=== PATIENT | male | born 1955 | race Caucasian/White ===

== ENCOUNTER → 2016-05-08 | Outpatient (CLI) | payer BC, MEDICARE ==
[~2016-05-08] MED LIST: ATOR10TA64 PO; BUPR150T3 PO; DULO60CA46 PO; FINA5TAB42 PO; FOLI-75 PO; GABA-338 PO; INSU300I SQ; LISI-625 PO; METF10002 PO; METO25TA6 PO; OMEG100016; PANT40TA27 PO; RANI150T7 PO
--- NOTE | 2016-05-08 15:39 | DI ---
Indication: ITS.REASON: I25.10 Atherosclerotic heart disease of [place]; G45.9; I65.29 PROCEDURE: US CAROTID DOPP COMPLETE: Comparison: November 03, 2013 TECHNIQUE: Grayscale, color and duplex Doppler imaging was performed of the carotid systems bilaterally. Velocities in cm/sec - validated velocity measurements with angiographic measurements, velocity criteria are extrapolated from diameter data as defined by the Society of Radiologists in Ultrasound Consensus Conference Radiology 2003; 229;340-346. RIGHT: PSV ICA 172 EDV ICA 40 PSV CCA 111 EDV CCA 17 SVR 1.5 PSV ECA 130 ICA Diameter reduction 50-75% LEFT: PSV ICA 234 EDV ICA 79 PSV CCA 95 EDV CCA 21 SVR 2.5 PSV ECA 142 ICA Diameter reduction 70%-80% (>2.5 PSV>200)% The right vertebral artery is patent with cephalic flow. The left vertebral artery is patent with cephalic flow. Overall stable velocity elevation in both carotid arteries involving the proximal to mid aspect bilaterally. Significant common carotid intimal thickening or noncalcified plaque on the right measuring 2.4 mm in thickness. IMPRESSION: Grossly unchanged bilateral internal carotid stenoses. .
== END ==
LOC: IMA 14:19
PROVIDERS: ATTEND Physician Assistant
DX: I25.10 Atherosclerotic heart disease of native coronary artery without angina pectoris (principal); I65.23 Occlusion and stenosis of bilateral carotid arteries

== ENCOUNTER 2017-04-05 17:49 | Inpatient (IN) ==
--- OUTSIDE RECORDS SUMMARY | 2017-04-05 18:00 | External Medical Summary | Clinical Summary ---
:1955 Author Organization [facility] Address [address] [place] [address] Phone Care Team Providers Name Role Phone Vic Dorantes MD Primary Care Provider Keven Gifford MD Unavailable Katie Esteves APRN Unavailable Raiza Araiza MD Unavailable Long Benoit RN Unavailable Unavailable Source Comments Some departments are not documenting in the electronic medical record. If you do not see the information that you expected, contact Release of Information in the Health Information Management department at [phone] for further assistance in locating additional records.[facility] Allergies No Known Allergies Current Medications Prescription Sig. Disp. Refills Start Date End Date Status INSULIN Inject 32 Units Active GLARGINE,HUM.REC.ANLOG into area(s) as (LANTUS SC) directed at bedtime daily. insulin lispro(+) Inject 16 Units Active (HUMALOG) 100 unit/mL SC into area(s) as injection directed daily with breakfast. 13 units with lunch8 units with dinner AMLODIPINE BESYLATE Take 2.5 mg by Active (AMLODIPINE PO) mouth daily. aspirin 325 mg PO tablet Take 325 mg by Active mouth Daily. PV W-O WING/FERROUS Take by mouth. Active FUMARATE/FA (M-VIT PO) losartan (COZAAR) 50 mg Take 50 mg by mouth Active tablet daily. metoprolol (LOPRESSOR) 25 Take 25 mg by mouth Active mg tablet twice daily. DOCOSAHEXANOIC ACID/EPA Take 1,000 mg by Active (FISH OIL PO) mouth. polyethylene glycol 3350 Take 17 g by mouth Active (GLYCOLAX; MIRALAX) 17 daily. gram/dose powder potassium chloride SR Take 10 mEq by Active (K-DUR) 10 mEq tablet mouth twice daily. ranitidine (ZANTAC) 75 mg Take 75 mg by mouth Active tablet daily as needed. rosuvastatin (CRESTOR) 5 Take 10 mg by mouth Active mg tablet daily. cloNIDine (CATAPRESS) 0.1 Take 0.1 mg by Active mg tablet mouth daily. HYDROcodone-acetaminophen Take 1 Tab by mouth Active (VICODIN) 5-500 mg tablet every 4-6 hours as needed. Active Problems Problem Noted Date CAD (coronary artery disease) 03/20/2010 DM (diabetes mellitus) (HCC) 03/20/2010 HLD (hyperlipidemia) 03/20/2010 Neuropathy, diabetic (HCC) 03/20/2010 Ulcer of esophagus 03/20/2010 HTN (hypertension) 03/20/2010 CVA (cerebral infarction) 03/20/2010 Social History Tobacco Use Types Packs/Day Years Used Date Never Smoker Smokeless Tobacco: Never Used Alcohol Use Drinks/Week oz/Week Comments Yes 1 Cans of beer 0.6 rare Sex Assigned at Date Recorded Not on file Last Filed Vital Signs Vital Sign Reading Time Taken Blood Pressure 156/80 10/23/2011 2:30 PM CDT Pulse 57 10/23/2011 2:30 PM CDT Temperature 36.9 C (98.4 F) 10/23/2011 11:39 AM CDT Respiratory Rate - - Oxygen Saturation 98% 10/23/2011 2:30 PM CDT Inhaled Oxygen Concentration - - Weight 90.7 kg (200 lb) 05/11/2011 8:00 AM CDT Height 172.7 cm (5' 8") 05/11/2011 8:00 AM CDT Body Mass Index 30.41 05/11/2011 8:00 AM CDT Plan of Treatment Health Maintenance Due Date Last Done Comments HEPATITIS C SCREENING 1955 PHYSICAL (COMPREHENSIVE) EXAM 1960 PERTUSSIS VACCINE 1964 TETANUS VACCINE 1970 DILATED EYE EXAM 11/08/1971 FOOT EXAM 11/08/1971 HBA1C 11/08/1971 MICROALBUMIN 11/08/1971 PNEUMONIA VACCINE (DM) 11/08/1971 COLORECTAL CANCER SCREENING 11/08/2003 SHINGLES VACCINE 2013 INFLUENZA VACCINE 09/15/2016
[2017-04-05 18:29] VITALS: BMI 32.2
[2017-04-05] MEDS ORDERED: ACETAMINOPHEN 325 MG TABLET PO PRN (18:53)
[2017-04-05] MEDS ORDERED: CEFTRIAXONE 2 GM INJECTION IV SCH (19:00)
[2017-04-05] MEDS ORDERED: AZITHROMYCIN IV 500 MG in NS 250ml 250 ML IV SCH (19:00)
[2017-04-05] MEDS ORDERED: NS FLUSH BAG 500ml IV PRN (20:06)
[2017-04-05] MEDS ORDERED: LABETALOL 100mg/20ml INJECTION IVP PRN (20:39)
[2017-04-05] MEDS ORDERED: ALBUTEROL/IPRATROPIUM 2.5mg-0.5mg/3ml NEB AEROSOL PRN (20:41)
[2017-04-05] MEDS ORDERED: ATORVASTATIN 20 MG TABLET PO SCH (20:45)
[2017-04-05] MEDS ORDERED: GABAPENTIN 300 MG CAPSULE PO SCH (21:00)
[2017-04-05] MEDS ORDERED: INSULIN GLARGINE 100unit/ml INJECTION SQ SCH (21:00)
[2017-04-05] MEDS ORDERED: INSULIN GLARGINE 100unit/ml INJECTION SQ ONE (21:10)
--- NOTE | 2017-04-05 21:22 | History & Physical Report ---
History of Present Illness Date: 04/05/17 Chief complaint: dyspnea, cough HPI: Mr. Garvey is a 61-year-old gentleman referred from Suzan Bradshaw APRN's office after he presented with 2 day history of dyspnea, wheezing, and cough. Symptoms developed after he had spent time with his son and grandson earlier in the day Wednesday. Grandson has a "cold". After returning home the patient began having difficulty breathing and wheezing. He developed chills and a constant nonproductive cough. He describes increasing exertional dyspnea and orthopnea, pain with coughing, but no hemoptysis. He's had no fever that he is aware of although low-grade temperature of 99.4 was recorded in the office earlier today. Patient describes increased thirst and some nausea and vomiting. He's had no edema or chest pain. Patient describes increasing fatigue with dizziness , nasal congestion, sore throat, and generalized myalgias. In the office oxygen saturation was 88% on room air and chest x-ray demonstrated right lower lobe infiltrate. He was subsequently referred for hospitalization and management of pneumonia. Influenza swab was negative. Review of Systems All systems PM: 10-point ROS was reviewed, no additional remarkable complaints except (minor pain at the left ankle from recent fibular fracture, mild left lower extremity weakness due to stroke in the remote past. Patient describes decreased appetite recently but thinks he's been maintaining oral intake of liquids. 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 CABG x 4, . Right carotid stent 03/28 ( [facility]). Tonsillectomy as a child. Bilateral cataracts. Family History: Family History (Last Updated 04/05/17 @ 20:38 by Breanne Estrada MD) Father Diabetes HTN (hypertension) Colon polyps CHF (congestive heart failure) Paternal Grandfather Colon cancer Mother HTN (hypertension) Family History Updates: . - Social History Smoking status: Never smoker Substance use type: does not use Alcohol intake frequency: holidays/special occasions only Household members: spouse Social history: PCP-Suzan Bradshaw APRN CODE STATUS-DO NOT RESUSCITATE DPOA-patient's Medications Home Medications Medication Instructions Recorded Confirmed Type Multivitamin/Iron/Folic Acid 1 tab PO DAILY #0 12/31/15 04/05/17 History [Centrum Complete Multivit Tab] Metoprolol Tartrate 25 mg PO BIDWM #0 tab 01/01/16 04/05/17 History Plavix (clopidogrel) 75 mg tablet 75 mg PO DAILY tab 08/26/16 04/05/17 History aspirin 81 mg chewable tablet 81 mg PO DAILY tab 08/26/16 04/05/17 History cinnamon bark 500 mg capsule 1,000 mg PO DAILY 08/26/16 04/05/17 History omega-3 fatty acids 1,000 mg 1,000 mg PO DAILY cap 08/26/16 04/05/17 History capsule Gabapentin 1 cap PO HS 04/05/17 04/05/17 History Insulin Glargine,Hum.rec.anlog 55 unit SQ HS 04/05/17 04/05/17 History [Sander Galeas] Allergies Allergy/AdvReac Type Severity Reaction Status Date / Time rosuvastatin [From Crestor] Allergy Unknown Verified 04/05/17 18:18 Exam Vital Signs: Temperature 99.7 F 04/05/17 18:13 Pulse Rate 82 04/05/17 19:30 Respiratory Rate 24 04/05/17 18:13 Blood Pressure 230/110 H 04/05/17 20:00 Pulse Oximetry 95 04/05/17 18:13 EXAM: General-NAD, fatigued, coughs frequently, obese HEENT-PERRL, EOMI without nystagmus, conjugate gaze, conjunctiva clear, sclera anicteric, facial structures symmetric, oropharynx clear, neck supple and without adenopathy Lungs-respirations nonlabored, no wheezing appreciated at time of my exam, crackle/coarse sounds at the bases bilaterally Cardiac-regular rhythm, S1-S2 Abd-soft, nontender, without palpable mass, bowel sounds present/diminished Ext-trace edema dorsal surface of the feet bilaterally, edema extends to the ankle on the left only Skin-without rash Neuro-cranial nerves 3-12 intact, motor tone/power grossly within normal limits , sensation intact to light touch 4 extremities Psych-cooperative, calm Height/Weight/BMI: Height 1.68 m Weight 90.5 kg Body Mass Index 32.2 Results - Labs CBC & Chem 7: 04/05/17 19:06 Labs: White count 10.6 earlier today, hemoglobin 11.9 with MCV 85.8. Differential was unremarkable in the office other than 5% eosinophils Swab for influenza A/B negative in the office Lactic acid 1.1, procalcitonin 0.37 - Imaging and Cardiology Chest x-ray Status: image reviewed by me (chest x-ray from earlier in the day demonstrates patchy right lower lobe infiltrate, there may be streaky left lower lobe infiltrate which is less well defined by my review.) Assessment and Plan (1) Pneumonia Current visit: Yes Status: Acute (2) Hypoxia Current visit: Yes Status: Acute Assessment and Plan: Impression: Pneumonia with hypoxia Uncontrolled hypertension/hypertensive urgency Diabetes mellitus, long-term insulin Diabetic retinopathy and peripheral neuropathy CAD Hyperlipidemia Left fibular fracture Plan: Patient is admitted with viral sounding prodrome and demonstrated right lower lobe infiltrate, fever, and hypoxia. He'll empirically be treated for community- acquired pneumonia with ceftriaxone and azithromycin. Respiratory therapy has been consulted for assistance with breathing treatments. Lactic acid and procalcitonin were not significantly elevated and blood cultures have not been drawn as a result. Sputum culture will be obtained, full respiratory viral panel obtained, and urine antigens for strep pneumonia and legionella. Overnight oximetry will be screened. Patient reports he's not taken metoprolol for blood pressure control for the past 24 hours or more-dose being given now and IV labetalol when necessary ordered. Monitor blood sugars, continue home diabetic regimen, carbohydrate diet. Last A1c was 12.9 in late December 2016-office records suggest patient is using NovoLog 10 units 3 times a day the patient reports he only takes one shot of insulin daily. Dietary counseling will be provided while hospitalized. Continue cam walker when out of bed. DO NOT RESUSCITATE order written in accordance with patient's wishes. Patient will return to the care of Suzan Bradshaw APRN following completion of hospitalization. DVT Prophylaxis: SCD's, Lovenox GI Prophylaxis: Protonix Resuscitation Status: Do Not Resuscitate - Physician Narrative Narrative: Date: 04/05/17 Time: 2117 Hospital Course Summary Disclaimer: The visit summary below is not to be considered part of the above Progress Note. Hospital Course: 04/05/17-admission Patient is admitted with viral sounding prodrome and demonstrated right lower lobe infiltrate, fever, and hypoxia. He'll empirically be treated for community- acquired pneumonia with ceftriaxone and azithromycin. Respiratory therapy has been consulted for assistance with breathing treatments. Lactic acid and procalcitonin were not significantly elevated and blood cultures have not been drawn as a result. Sputum culture will be obtained, full respiratory viral panel obtained, and urine antigens for strep pneumonia and legionella. Overnight oximetry will be screened. Patient reports he's not taken metoprolol for blood pressure control for the past 24 hours or more-dose being given now and IV labetalol when necessary ordered. Monitor blood sugars, continue home diabetic regimen, carbohydrate diet. Last A1c was 12.9 in late December 2016-office records suggest patient is using NovoLog 10 units 3 times a day the patient reports he only takes one shot of insulin daily. Dietary counseling will be provided while hospitalized. Continue cam walker when out of bed.
[2017-04-05] MEDS: INSULIN ASPART 100unit/ml INJECTION SQ PRN (22:24)
[2017-04-05] MEDS ORDERED: AZITHROMYCIN 500 MG TABLET PO ONE (22:25)
[2017-04-06] MEDS: INSULIN ASPART 100unit/ml INJECTION SQ PRN (06:13)
[2017-04-06] MEDS ORDERED: PANTOPRAZOLE 40 MG TABLET PO SCH (06:30)
[2017-04-06 07:36] VITALS: BP 177/90; TEMP 96.7
[2017-04-06] MEDS ORDERED: CLOPIDOGREL 75 MG TABLET PO SCH (09:00)
[2017-04-06] MEDS ORDERED: ENOXAPARIN 40 MG/0.4 ML INJECTION SQ SCH (09:00)
[2017-04-06] MEDS ORDERED: BuPROPion IR 75 MG TABLET PO SCH (09:00)
[2017-04-06] MEDS ORDERED: FINASTERIDE 5 MG TABLET PO SCH (09:00)
[2017-04-06] MEDS ORDERED: LIRAGLUTIDE INJECTABLE PEN SQ SCH (09:00)
[2017-04-06] MEDS ORDERED: ASPIRIN 81 MG CHEWABLE TABLET PO SCH (09:00)
[2017-04-06] MEDS ORDERED: DULOXETINE 30 MG CAPSULE PO SCH (09:00)
--- NOTE | 2017-04-06 11:12 | XRay Report ---
INDICATION: pneumonia PROCEDURE: CHEST 2-VIEWS UPRIGHT (PA & LAT) Encounter: Initial COMPARISON: April 05, 2017 FINDINGS: Slight improvement in multifocal airspace consolidation of the right lung with residual airspace disease. No new or worsening infiltrates. No pneumothorax. Trace right effusion. Heart size, pulmonary vascularity and mediastinal contours are stable. Prior CABG. Impression: Slight improvement in right-sided pneumonia. .
[2017-04-06 11:37] VITALS: O2SAT 97
[2017-04-06 12:10] VITALS: PULSE 62
[2017-04-06] MEDS ORDERED: INFLUENZA VAC QIV 2017-18 (Fluarix*)(>=3yo) 0.5ml IM ONE (14:33)
[2017-04-06] MEDS: ALBUTEROL/IPRATROPIUM 2.5mg-0.5mg/3ml NEB AEROSOL SCH ×2 (15:39→15:44)
[2017-04-06 15:49] VITALS: RESP 18
--- NOTE | 2017-04-06 16:11 | Discharge Summary ---
Discharge Information Date of admission: 04/05/17 17:49 Anticipated date of discharge: 04/06/17 Attending Physician: Francisca Dean MD Primary care physician: Suzan Bradshaw APRN Consults: 04/05/17 21:41 Dietary Consult [CONS] Routine Comment: Reason For Exam: uncontrolled diabetes Community Acquired pneumonia Acute hypoxic respiratory failure Hypertensive urgency Diabetes mellitus, long-term insulin Diabetic retinopathy and peripheral neuropathy CAD Hyperlipidemia Left fibular fracture - Laboratory Labs: 04/06/17 05:25 04/06/17 05:25 - Microbiology Viral respiratory panel negative - Radiology Radiology: CXR- Right lower lobe pneumonia History of Present Illness HPI: Mr. Garvey is a 61-year-old gentleman referred from Suzan Bradshaw APRN's office after he presented with 2 day history of dyspnea, wheezing, and cough. Symptoms developed after he had spent time with his son and grandson earlier in the day Wednesday. Grandson has a "cold". After returning home the patient began having difficulty breathing and wheezing. He developed chills and a constant nonproductive cough. He describes increasing exertional dyspnea and orthopnea, pain with coughing, but no hemoptysis. He's had no fever that he is aware of although low-grade temperature of 99.4 was recorded in the office earlier today. Patient describes increased thirst and some nausea and vomiting. He's had no edema or chest pain. Patient describes increasing fatigue with dizziness , nasal congestion, sore throat, and generalized myalgias. In the office oxygen saturation was 88% on room air and chest x-ray demonstrated right lower lobe infiltrate. He was subsequently referred for hospitalization and management of pneumonia. Influenza swab was negative. Objective Vital signs: Temperature 96.7 F L 04/06/17 07:34 Pulse Rate 62 04/06/17 12:00 Respiratory Rate 18 04/06/17 15:44 Blood Pressure 177/90 H 04/06/17 07:34 Pulse Oximetry 97 04/06/17 13:58 Rhythm: Normal Sinus Rhythm Height/Weight/BMI: Height 5 ft 6 in Weight 91.2 kg Body Mass Index 32.2 - Constitutional Present: no acute distress, cooperative - Routine HEENT Exam Head: Present: normocephalic, atraumatic Eye: Present: EOMI, conjunctivae pink ENT: Present: mucous membranes moist - Routine Respiratory Exam Present: crackles (R). Absent: respiratory distress Comments: RLL - Routine Cardiovascular Exam Present: RRR, no murmur - Routine Abdominal Exam Present: soft, normoactive bowel sounds. Absent: tenderness - Routine Extremities Exam Present: no edema - Routine Musculoskeletal Exam Musculoskeletal: Present: no clubbing or cyanosis, no tenderness - Routine Skin Exam Present: intact, dry, warm - Routine Neurological Exam Present: alert, oriented X3, CN II-XII intact - Routine Psychiatric Exam Present: normal affect Hospital Course This is a general summary of the patient's hospital course. For more details refer to the complete medical record. Hospital course: Patient is admitted with viral sounding prodrome and CXR showed right lower lobe infiltrate. Patient also had fever and hypoxia. He was empirically treated for community-acquired pneumonia with ceftriaxone and azithromycin. Respiratory therapy was consulted for assistance with breathing treatments. Lactic acid and procalcitonin were not significantly elevated and blood cultures were not drawn as a result. Full respiratory viral panel was negative and urine antigens for strep pneumonia and legionella were pending at the time of discharge. Patient was initially improved at admission after being given breathing treatment but then required oxygen over night due to hypoxia. Patient was able to be titrated to room air. He was changed to PO levaquin. Patient reports he's not taken metoprolol for blood pressure control for the past 24 hours or more prior to admission. IV PRN medications were given with a resultant decrease in blood pressure. Counseled on the importance of medication compliance. Patient instructed to follow up with PCP in one week and to continue home medications as instructed. He was provided with prescription for antibiotics. Discharge Plan - Discharge Disposition Disposition: Discharged Home, Self-Care *Condition: Stable Reason For Visit (Visit label in EMR): pneumonia,hypoxia - Discharge Medications *Discharge Medications: New levoFLOXacin [Levaquin] 750 mg PO ACB #5 tab Continue Multivitamin/Iron/Folic Acid [Centrum Complete Multivit Tab] 1 tab PO DAILY # 0 Gabapentin 1 cap PO HS Metoprolol Tartrate 25 mg PO BIDWM #0 tab Insulin Glargine,Hum.rec.anlog [Sander Galeas] 55 unit SQ HS cinnamon bark 500 mg capsule 1,000 mg PO DAILY omega-3 fatty acids 1,000 mg capsule 1,000 mg PO DAILY cap Cymbalta (duloxetine) 30 mg capsule,delayed release 30 mg PO DAILY #30 cap Lipitor (atorvastatin) 20 mg tablet 20 mg PO .bedtime #90 tab Plavix (clopidogrel) 75 mg tablet 75 mg PO DAILY tab aspirin 81 mg chewable tablet 81 mg PO DAILY tab liraglutide 0.6 mg/0.1 mL (18 mg/3 mL) subcutaneous pen injector 1.2 mg SQ DAILY #3 ml bupropion HCl 75 mg tablet 75 mg PO DAILY #90 tab Proscar (finasteride) 5 mg tablet 5 mg PO DAILY #90 tab - Discharge Packet/Instructions *Diet: Diabetic *Activity: As tolerated *Pain Management/Treatment: Tylenol as needed. Continue Levaquin x 5 days *Wound Care: N/A *Expected Signs/Symptoms: Cough *Notify Physician if: Continued fever, worsening of symptoms, increased shortness of breath, signs of dehydration *During Business Hours Contact: PCP *After Business Hours Contact: call center representative physician or ED *Pending Lab/Results: No Pending Lab - Referrals/Follow Up *Referrals/Follow Up: Suzan Bradshaw, [facility] [Family Provider] - 1 Week - Patient Handouts Patient Handouts: Hypoxia (GEN), Pneumonia (GEN) - Dismissal Complete Discharge Instructions are:: Complete Physician Narrative - Narrative Physician: other Attestation Narrative: Date: 04/06/17 Time: 4541
[2017-04-06] MEDS ORDERED: INFLUENZA VAC. INJ. ADMIN CHARGE INJ ONE (17:49)
[2017-04-06] MEDS ORDERED: CEFTRIAXONE 1 G in NS 50 ML IV SCH (20:00)
[2017-04-06] MEDS ORDERED: ATORVASTATIN 20 MG TABLET PO SCH (21:00)
[2017-04-07] MEDS ORDERED: LIRAGLUTIDE INJECTABLE PEN SQ SCH (09:00)
[2017-04-13] MEDS ORDERED: LIRAGLUTIDE INJECTABLE PEN SQ SCH (09:00)
== END 2017-04-06 17:50 | disposition home or self-care (01) | DRG 195 ==
LOC: SUATTDRO 17:49 → MED 17:49
PROVIDERS: ADMIT Internal Medicine; ATTEND Pediatrics